=== PATIENT | female | born 1960 | race Caucasian/White ===

== ENCOUNTER 2025-02-25 06:18 | Day surgery (SDC) | payer BC, SELFPAY ==
[2025-02-25 10:48] LABS: Glucose - Point of Care 91 mg/dl (70-99)
== END 2025-02-25 11:39 | disposition home or self-care (01) ==
LOC: GI 06:18
PROVIDERS: ATTENDING PHYSICIAN Internal Medicine Gastroenterology
DX: Z12.11 Encounter for screening for malignant neoplasm of colon (principal); Z86.0100 Personal history of colon polyps, unspecified; K64.8 Other hemorrhoids; K57.30 Diverticulosis of large intestine without perforation or abscess without bleeding; R10.13 Epigastric pain; K31.7 Polyp of stomach and duodenum; K31.89 Other diseases of stomach and duodenum; D12.3 Benign neoplasm of transverse colon; K63.5 Polyp of colon
CPT/HCPCS: 45385; 45380; 43239; 88305; 82962; 88342